=== PATIENT | male | born 1950 | race Caucasian/White ===

== ENCOUNTER → 2017-05-21 | Day surgery (SDC) | payer BC ==
[~2017-05-21] MED LIST: BAYER CHEWABLE81 MG PO; DITROPAN XL5 M1 PO; JENTADUETO 2.51 EAC2 PO; LIPITOR20 MG PO; OMEPRAZOLE20 M2 PO; SERTRALINE HCL50 MG PO; ZESTRIL5 MG PO
--- NOTE | ~2017-05-21 | OR ---
Unit #: [id number] #: [id number] Patient: JEAN HARRIS [id number] [address] [place], [place] [address] [id number] O MR#: [id number] NAME: JEAN HARRIS. ROOM: Date of Procedure: 05/21/2017 Admission Date: 05/21/2017 Surgeon: Sonido Coto M.D. : 1950 Attending Physician: Sonido Coto M.D. Primary Care Physician: Debbie Freeman M.D. OPERATIVE REPORT PREOPERATIVE DIAGNOSIS Colorectal cancer screening in an average-risk patient. PROCEDURES PERFORMED Colonoscopy and polypectomy. POSTOPERATIVE DIAGNOSES 1. The patient had three sessile polyps, the largest of these was 1.5 cm sessile polyp in the ascending colon. There were two small polyps each about 4 to 5 mm in size in the transverse colon and in the sigmoid colon. All the three polyps were removed using snare polypectomy. They were retrieved and sent for histology. 2. Mild sigmoid and descending colon diverticulosis. 3. Rest of the examination up to cecum and terminal ileum was normal. The quality of prep was excellent. RECOMMENDATIONS Follow up the results of polyp histology and consider repeat colonoscopy in 5 years. SEDATION USED MAC. DESCRIPTION OF PROCEDURE Following detailed explanation of the potential risks and complications of a colonoscopy, namely perforation, bleeding, and complications related to sedation, the patient was brought to GI lab and laid in the left lateral decubitus position. A digital rectal examination was performed, which was normal. Lubricated tip of the Olympus video colonoscope was inserted through the anus and advanced under direct vision. The scope was advanced past rectosigmoid into descending colon. Scant small diverticula were noted in this area. The scope tip was then navigated all the way up to cecum with visualization of the ileocecal valve and the appendiceal orifice. Preparation was excellent with good visualization and photodocumentation was obtained. Last few inches of the terminal ileum were also visualized after intubation of the ileocecal valve and appeared normal. Successive segments of the colonic mucosa were examined upon withdrawal. The patient was noted to have a 1.5 cm sessile polyp in the proximal ascending colon. This was removed using snare cautery polypectomy. The polyp was retrieved and sent for histology. A second polyp was seen in mid transverse colon. This was about 5 mm in size. It was also removed using snare polypectomy, retrieved and sent for Unit #: [id number] #: [id number] Patient: JEAN HARRIS histology. A third polyp was noted in the mid sigmoid colon. The latter was also removed and sent for histology after retrieval. No additional polyps were noted. Other than the scant left-sided diverticula, no other abnormalities were found. The patient did not have any hemorrhoids at anal verge. The scope was then withdrawn and the patient returned to the recovery area. He tolerated the procedure without any postprocedure complications. Dictated by... Greg Simms/eze TD: 05/21/2017 15:50 JOB #: [id number] OPERATIVE REPORT Page 1 of 1 X Sonido Coto MD X PROCEDURE OPERATIVE NOTE
== END | disposition home or self-care (01) ==
LOC: COPS 10:26
DX: Z12.11 Encounter for screening for malignant neoplasm of colon (principal); D12.2 Benign neoplasm of ascending colon; K63.5 Polyp of colon; K57.30 Diverticulosis of large intestine without perforation or abscess without bleeding; K21.9 Gastro-esophageal reflux disease without esophagitis; E78.5 Hyperlipidemia, unspecified; E11.9 Type 2 diabetes mellitus without complications; Z85.46 Personal history of malignant neoplasm of prostate; Z90.49 Acquired absence of other specified parts of digestive tract; Z79.899 Other long term (current) drug therapy
CPT/HCPCS: 82947; 88305